=== PATIENT | female | born 1955 | race Caucasian/White ===

== ENCOUNTER 2016-11-17 13:27 | Inpatient (IN) | payer SELFPAY ==
--- NOTE | 2016-11-17 14:42 | UCPHY ---
H & P Patient Type: New Chief Complaint Nursing Narrative: states on Sat while having her hair done she became very dizzy, ate some oranges and dizzyness resolved. over weekend felt tired and like her BP was elevated- today feeling flushed and very anxious about elevated BP - does not have PCP - has been getting Rx refills of Lisinopril from walk in clinics for last 3 yrs HPI/ROS: HPI CHIEF COMPLAINT: Lightheadedness, anxiety, hypertension HISTORY OF PRESENT ILLNESS: This patient very pleasant 59-year-old female, has no primary care doctor, and has a history of hypertension for which she takes lisinopril. Patient tells me that Thursday she was getting a haircut she felt very lightheaded, since Thursday she has been very anxious she took her blood pressure noted it was high in the 160s-170s. She has no chest pain no headache no numbness or tingling no weakness. Patient tells me that she felt very anxious after taking this blood pressure. She has been very concerned she decided come here to the urgent care for evaluation of hypertension. She does not have a primary care doctor she gets her lisinopril filled at various walk- in clinics. She tells me her blood pressure usually runs 130 systolic. Here in the [facility] noted to be 160 systolic, she complains of anxiety. No chest pain no shortness of breath no headache no numbness or tingling no weakness. Past Medical History: Hypertension Past Surgical History: no significant recent surgery Social History: denies daily use of drugs alcohol tobacco products Family History: noncontributory ROS REVIEW OF SYSTEMS: A comprehensive 10 point review of systems is otherwise negative aside from elements mentioned in the history of present illness. Exam Constitutional appears anxious, triage nursing summary reviewed, vital signs reviewed, awake/alert. Eyes normal conjunctivae and sclera, EOMI, PERRLA. HENT normal inspection, atraumatic, moist mucus membranes, no epistaxis, neck supple/ no meningismus, no raccoon eyes. Respiratory clear to auscultation bilaterally, normal breath sounds, no respiratory distress, no wheezing. Cardiovascular rate normal, regular rhythm, no murmur, no edema, distal pulses normal. Gastrointestinal soft, non-tender, no rebound, no guarding, normal bowel sounds, no distension, no pulsatile mass. Genitourinary no CVA tenderness. Musculoskeletal no midline vertebral tenderness, full range of motion, no calf swelling, no tenderness of extremities, no meningismus, good pulses, neurovascularly intact. Skin pink, warm, & dry, no rash, skin atraumatic. Neurologic awake, alert and oriented x 3, AAOx3, moves all 4 extremities equally, motor intact, sensory intact, CN II-XII intact, normal cerebellar, normal vision, normal speech. Psychiatric normal mood/affect. Heme/Lymph/Immune no lymphadenopathy. Differential Diagnosis: includes but is not limited to in a particular order hypertensive urgency, hypertensive emergency, anxiety Medical Decision Making: plan for this patient have an EKG, basic blood work check her creatinine, give her dose of lisinopril 20 mg and re-evaluate her. Re-evaluation: EKG interpretation by me on record in [employer] system. Impression time of EKG 1504, this is sinus rhythm rate of 86, there is no acute ischemic changes appreciated specifically no ST elevations significant ST depression T-wave abnormalities. Prolonged intervals. 0356: Re-examination at this time patient is resting comfortably no chest pain no shortness of breath. Blood pressure improved slightly by 20 points. She has been given lisinopril 20 mg. Blood work pending. ED x-ray chest two view: negative for acute cardiopulmonary disease. Specifically no evidence cardiomegaly, or overt failure. 1901: Re-examination at this time this patient is resting comfortably no acute distress. Repeat troponin is pending. She has not any chest pain. Blood pressure has improved slightly with lisinopril 40 mg. I will give her prescription for this she understands keep a blood pressure log. Also been referred to outpatient primary care doctors [facility] and primary care on- call. Patient does understand she gets chest pain, shortness of breath, severe headache, numbness or tingling she needs return emergency room immediately. She is comfortable being discharged home. Lisinopril 40 mg keep a blood pressure log, hold medication she gets severely lightheaded her low blood pressure. She understands. Source: Patient - Personal History Current Tetanus Diphtheria and Acellular Pertussis (TDAP): Yes - Medical/Surgical History Other PMH: denies - Family History Significant Family History: No pertinent family hx - Social History Smoking Status: Never smoked Constitutional: Initial Vital Signs Heart Rate 90 11/17/16 13:45 Respiratory Rate 18 11/17/16 13:45 Blood Pressure 181/108 H 11/17/16 13:45 O2 Sat (%) 97 11/17/16 13:45 O2 Delivery Mode Room Air Allergies/Adverse Reactions: No Known Allergies Allergy (Unverified 11/17/16 13:44) Home Medications: Medication Instructions Recorded Lisinopril 11/17/16 Lisinopril [Zestril 40 mg (*)] 40 mg PO DAILY #30 tab 11/17/16 Medical Decision Making - Data Points Laboratory Results: Laboratory Results 11/17/16 15:21 11/17/16 15:21 11/17/16 11/17/16 11/17/16 17:55 16:21 15:30 WBC RBC Hgb Hct MCV MCH MCHC RDW Plt Count MPV Neut % (Auto) Lymph % (Auto) [place] % (Auto) Eos % (Auto) Baso % (Auto) Nucleat RBC Rel Count Absolute Neuts (auto) Absolute Lymphs (auto) Absolute Monos (auto) Absolute Eos (auto) Absolute Basos (auto) Absolute Nucleated RBC Immature Gran % Immature Gran # PT INR APTT Sodium Potassium Chloride Carbon Dioxide Anion Gap BUN Creatinine Estimated GFR Glucose Calcium Troponin I Pending 0.017 ng/mL ng/mL (0-0.034) NT-Pro-B Natriuret Pep Urine Color YELLOW Urine Appearance CLEAR Urine pH 7.0 (5.0-7.5) Ur Specific [place] 1.020 (1.002-1.030) Urine Protein NEGATIVE (NEGATIVE) Urine Ketones NEGATIVE (NEGATIVE) Urine Blood NEGATIVE (NEGATIVE) Urine Nitrate NEGATIVE (NEGATIVE) Urine Bilirubin NEGATIVE (NEGATIVE) Urine Urobilinogen 0.2 EU EU (0.2-1.0) Ur Leukocyte Esterase NEGATIVE (NEGATIVE) Ur Culture Indicated? NOT INDICATED (NI) Urine Glucose NEGATIVE (NEGATIVE) 11/17/16 11/17/16 11/17/16 15:21 15:21 15:21 WBC 7.20 10^3/uL 10^3/uL (3.80-9.50) RBC 5.07 10^6/uL 10^6/uL (4.18-5.33) Hgb 15.3 g/dL g/dL (12.6-16.3) Hct 44.7 % % (38.0-47.0) MCV 88.2 fL fL (81.5-99.8) MCH 30.2 pg pg (27.9-34.1) MCHC 34.2 g/dL g/dL (32.4-36.7) RDW 13.6 % % (11.5-15.2) Plt Count 240 10^3/uL 10^3/uL (150-400) MPV 12.2 fL H fL (8.7-11.7) Neut % (Auto) 60.4 % % (39.3-74.2) Lymph % (Auto) 33.5 % % (15.0-45.0) [place] % (Auto) 4.6 % % (4.5-13.0) Eos % (Auto) 0.6 % % (0.6-7.6) Baso % (Auto) 0.8 % % (0.3-1.7) Nucleat RBC Rel Count 0.0 % % (0.0-0.2) Absolute Neuts (auto) 4.35 10^3/uL 10^3/uL (1.70-6.50) Absolute Lymphs (auto) 2.41 10^3/uL 10^3/uL (1.00-3.00) Absolute Monos (auto) 0.33 10^3/uL 10^3/uL (0.30-0.80) Absolute Eos (auto) 0.04 10^3/uL 10^3/uL (0.03-0.40) Absolute Basos (auto) 0.06 10^3/uL 10^3/uL (0.02-0.10) Absolute Nucleated RBC 0.00 10^3/uL 10^3/uL (0-0.01) Immature Gran % 0.1 % % (0.0-1.1) Immature Gran # 0.01 10^3/uL 10^3/uL (0.00-0.10) PT 13.3 SEC SEC (12.0-15.0) INR 1.04 (0.83-1.16) APTT 28.6 SEC SEC (23.0-38.0) Sodium 143 mEq/L mEq/L (134-144) Potassium 3.8 mEq/L mEq/L (3.5-5.2) Chloride 108 mEq/L mEq/L (97-110) Carbon Dioxide 22 mEq/l mEq/l (22-31) Anion Gap 13 mEq/L mEq/L (8-16) BUN 12 mg/dL mg/dL (7-23) Creatinine 0.5 mg/dL L mg/dL (0.6-1.0) Estimated GFR > 60 Glucose 97 mg/dL mg/dL (70-100) Calcium 10.2 mg/dL mg/dL (8.5-10.4) Troponin I NT-Pro-B Natriuret Pep 252 pg/mL H pg/mL (0-125) Urine Color Urine Appearance Urine pH Ur Specific [place] Urine Protein Urine Ketones Urine Blood Urine Nitrate Urine Bilirubin Urine Urobilinogen Ur Leukocyte Esterase Ur Culture Indicated? Urine Glucose Medications Given: Discontinued Medications Lisinopril (Zestril) 20 mg PO EDNOW ONE Stop: 11/17/16 14:55 Last Admin: 11/17/16 15:20 Dose: 20 mg Lisinopril (Zestril) 20 mg PO EDNOW ONE Stop: 11/17/16 17:42 Last Admin: 11/17/16 17:46 Dose: 20 mg Departure - Departure Disposition: Home, Routine, Self-Care Clinical Impression: Hypertension Qualifiers: Hypertension type: other secondary hypertension Qualified Code(s): I15.8 - Other secondary hypertension Condition: Good Instructions: Hypertension (ED) Additional Instructions: 1. please take your blood pressure twice a day. Take this at the same time each day keep a log. 2. I referred due to outpatient primary care doctor, Also [facility] for uninsured healthcare. 3. I have also increased her lisinopril dose. 4. If you get lightheaded or feeling given a pass out this lisinopril and to lowering her blood pressure too much please reduce the dose or hold it. Referrals: NONE *PRIMARY CARE P,. [Primary Care Provider] - As per Instructions Mina Shirley MD [Medical Doctor] - As per Instructions [facility] [Outside] - As per Instructions Prescriptions: Lisinopril [Zestril 40 mg (*)] 40 mg PO DAILY #30 tab - PQRS PQRS Measurement: n/a
[2016-11-17] MEDS ORDERED: LISINOPRIL 20 MG TAB PO ONE ×2 (14:54→17:41)
--- NOTE | 2016-11-17 15:06 | CPEKG ---
Heart Rate: 86 RR Interval: 698 P-R Interval: 140 QRSD Interval: 96 QT Interval: 384 QTC Interval: 460 P [place]: 56 QRS [place]: 36 T Wave [place]: 56 EKG Severity - NORMAL ECG - EKG Impression: SINUS RHYTHM Electronically Signed By: Del Nicole 18-Nov-2016 15:10:37
[2016-11-17 15:38] LABS: % IMMATURE GRANULYOCYTES 0.1 % (0.0-1.1); ABSOLUTE IMMATURE GRANULOCYTES 0.01 10^3/uL (0.00-0.10); ADD DIFF? NO; ADD MORPH? NO; ADD SCAN? NO; ATYPICAL LYMPHOCYTE FLAG 0 (0-99); FRAGMENT RBC FLAG 0 (0-99); HEMATOCRIT 44.7 % (38.0-47.0); HEMOGLOBIN 15.3 g/dL (12.6-16.3); LEFT SHIFT FLG 0 (0-99); LIPEMIA HEMOLYSIS FLAG 90 (0-99); MEAN CELL HEMOGLOBIN 30.2 pg (27.9-34.1); MEAN CELL HEMOGLOBIN CONCENTR. 34.2 g/dL (32.4-36.7); MEAN CELL VOLUME 88.2 fL (81.5-99.8); MEAN PLATELET VOLUME 12.2 fL (8.7-11.7); PLATELET CLUMPS FLAG 0 (0-99); PLATELET COUNT 240 10^3/uL (150-400); RED BLOOD CELL COUNT 5.07 10^6/uL (4.18-5.33); RED CELL DISTRIBUTION WIDTH 13.6 % (11.5-15.2)
[2016-11-17 15:49] LABS: INR 1.04 (0.83-1.16); PROTIME(PATIENT) 13.3 SEC (12.0-15.0)
[2016-11-17 15:50] LABS: APTT 28.6 SEC (23.0-38.0)
[2016-11-17 15:57] LABS: ANION GAP 13 mEq/L (8-16); CALCIUM 10.2 mg/dL (8.5-10.4); CARBON DIOXIDE 22 mEq/l (22-31); CHLORIDE 108 mEq/L (97-110); CREATININE 0.5 mg/dL (0.6-1.0); GLOMERULAR FILTRATION RATE > 60; GLUCOSE 97 mg/dL (70-100); POTASSIUM 3.8 mEq/L (3.5-5.2); SODIUM 143 mEq/L (134-144)
[2016-11-17 18:30] LABS: COLOR YELLOW; LEUKOCYTE ESTERASE,URINE NEGATIVE (NEGATIVE); NITRITE,URINE NEGATIVE (NEGATIVE)
[2016-11-17 19:29] LABS: TROPONIN I 0.383 ng/mL (0-0.034)
[2016-11-17] MEDS ORDERED: ASPIRIN 81 MG CHEWABLE TAB PO ONE (19:34)
[2016-11-17] MEDS ORDERED: ENOXAPARIN 80 MG/0.8 ML SYR SC ONE (19:34)
--- NOTE | 2016-11-17 20:01 | CPEKG ---
Heart Rate: 81 RR Interval: 741 P-R Interval: 140 QRSD Interval: 100 QT Interval: 392 QTC Interval: 455 P [place]: 52 QRS [place]: 61 T Wave [place]: 55 EKG Severity - NORMAL ECG - EKG Impression: SINUS RHYTHM Electronically Signed By: Del Nicole 18-Nov-2016 15:10:37
[2016-11-18] MEDS ORDERED: LORazepam 0.5 MG TAB PO ONE (01:32)
[2016-11-18] MEDS ORDERED: ONDANSETRON DISINTEGRATING 4 MG TAB PO PRN (01:44)
[2016-11-18] MEDS ORDERED: ACETAMINOPHEN 325 MG TAB PO PRN (01:44)
[2016-11-18] MEDS ORDERED: ONDANSETRON 4 MG/2 ML VIAL IVP PRN (01:44)
[2016-11-18 01:56] LABS: CREATINE KINASE-MB FRACTION 4.76 ng/mL (0-3.19); TROPONIN I 0.757 ng/mL (0-0.034)
[2016-11-18 01:59] LABS: CK-MB INTERPRETATION POSITIVE (NEGATIVE)
--- NOTE | 2016-11-18 03:34 | PDGENHP ---
History and Physical - Chief Complaint feeling unwell - History of Present Illness Patient is a 61/F with HTN and no real medical follow-up who presented to the [facility] with complaint of feeling generally unwell and high blood pressure. Patient states since Thursday afternoon she has felt fatigued and not herself. She remained relatively inactive over the weekend because she continued to feel "bad." This morning she woke up and felt dizzy he and decided to check her blood pressure. She noted her BP to be in the 160-170 range which was unusual for her, so she decided to go to the [facility] for further evaluation. She denies any episode of chest pain, palpitations, shortness of breath or diaphoresis. She did report decreased p.o. intake over the weekend and some nausea this morning. On arrival to the [facility], patient was hypertensive, but afebrile and otherwise stable. Initial labs including CBC, BMP and troponin were unremarkable. Initial EKG also did not reveal any evidence of ischemia. She was given lisinopril 40 mg p.o. with improvement of her blood pressure. Repeat troponin was then checked and was noted to have increased to 0.3 and repeat EKG also showed evidence of ST depressions in V4 through V6. Given this change, patient was given full-dose aspirin, therapeutic dose Lovenox [facility] History Information - Allergies/Home Medication List Allergies/Adverse Reactions: No Known Allergies Allergy (Unverified 11/17/16 13:44) Home Medications: Lisinopril 11/17/16 [Last Taken Unknown] I have personally reviewed and updated: family history, medical history, social history, surgical history - Past Medical History Additional medical history: Hypertension - Surgical History Reports: no pertinent surgical hx - Family History Additional family history: F: CVA. Sister: ? cad - Social History Smoking Status: Never smoked Alcohol Use: Rarely Drug Use: None Additional social history: patient lives with her , works as an office administrative assistant. Review of Systems ROS: 10pt was reviewed & negative except for what was stated in HPI & below Physical Exam Temp Pulse Resp BP Pulse Ox 36.9 C 98 16 149/87 H 98 11/17/16 23:55 11/17/16 23:55 11/17/16 23:55 11/17/16 23:55 11/17/16 23:55 Constitutional: no apparent distress, appears nourished, not in pain, other ( Appears anxious) Eyes: PERRL, anicteric sclera, EOMI Ears, Nose, Mouth, Throat: moist mucous membranes, hearing normal, ears appear normal, no oral mucosal ulcers Cardiovascular: regular rate and rhythym, no murmur, rub, or gallop, pulses symmetric bilaterally, No JVD, No edema Peripheral Pulses: 2+: dorsalis-pedis (R), dorsalis-pedis (L) Respiratory: no respiratory distress, no rales or rhonchi, clear to auscultation Gastrointestinal: normoactive bowel sounds, soft, non-tender abdomen, no palpable masses, No guarding, No rebound, No distension Genitourinary: no bladder fullness, no bladder tenderness Skin: warm, normal color, no rashes or abrasions, no fluctuance, no induration, No mottled Musculoskeletal: full muscle strength, no muscle tenderness, normal joint ROM, no joint effusions Neurologic: AAOx3, sensation intact bilaterally, CN II-XII Intact, No weakness, No numbness, No pronator drift, No facial droop Psychiatric: not encephalopathic, thought process linear, anxious Lab Data & Imaging Review 11/17/16 15:21 11/17/16 15:21 WBC 7.20 10^3/uL (3.80-9.50) 11/17/16 15:21 RBC 5.07 10^6/uL (4.18-5.33) 11/17/16 15:21 Hgb 15.3 g/dL (12.6-16.3) 11/17/16 15:21 Hct 44.7 % (38.0-47.0) 11/17/16 15:21 MCV 88.2 fL (81.5-99.8) 11/17/16 15:21 MCH 30.2 pg (27.9-34.1) 11/17/16 15:21 MCHC 34.2 g/dL (32.4-36.7) 11/17/16 15:21 RDW 13.6 % (11.5-15.2) 11/17/16 15:21 Plt Count 240 10^3/uL (150-400) 11/17/16 15:21 MPV 12.2 fL (8.7-11.7) H 11/17/16 15:21 Neut % (Auto) 60.4 % (39.3-74.2) 11/17/16 15:21 Lymph % (Auto) 33.5 % (15.0-45.0) 11/17/16 15: [place] % (Auto) 4.6 % (4.5-13.0) 11/17/16 15: Eos % (Auto) 0.6 % (0.6-7.6) 11/17/16 15: Baso % (Auto) 0.8 % (0.3-1.7) 11/17/16 15: Nucleat RBC Rel Count 0.0 % (0.0-0.2) 11/17/16: Absolute Neuts (auto) 4.35 10^3/uL (1.70-6.50) 11/17/16 15: Absolute Lymphs (auto) 2.41 10^3/uL (1.00-3.00) 11/17/16: Absolute Monos (auto) 0.33 10^3/uL (0.30-0.80) 11/17/16 15: Absolute Eos (auto) 0.04 10^3/uL (0.03-0.40) 11/17/16: Absolute Basos (auto) 0.06 10^3/uL (0.02-0.10) 11/17/16 15: Absolute Nucleated RBC 0.00 10^3/uL (0-0.01) 11/17/16: Immature Gran % 0.1 % (0.0-1.1) 11/17/16 15: Immature Gran # 0.01 10^3/uL (0.00-0.10) 11/17/16 15: PT 13.3 SEC (12.0-15.0) 11/17/16 15: INR 1.04 (0.83-1.16) 11/17/16 15: APTT 28.6 SEC (23.0-38.0) 11/17/16 15:21 Sodium 143 mEq/L (134-144) 11/17/16 15:21 Potassium 3.8 mEq/L (3.5-5.2) 11/17/16 15:21 Chloride 108 mEq/L (97-110) 11/17/16 15:21 Carbon Dioxide 22 mEq/l (22-31) 11/17/16 15:21 Anion Gap 13 mEq/L (8-16) 11/17/16 15:21 BUN 12 mg/dL (7-23) 11/17/16 15:21 Creatinine 0.5 mg/dL (0.6-1.0) L 11/17/16 15:21 Estimated GFR > 60 11/17/16 15:21 Glucose 97 mg/dL (70-100) 11/17/16 15:21 Calcium 10.2 mg/dL (8.5-10.4) 11/17/16 15:21 Creatine Kinase 114 IU/L (0-156) 11/17/16 23:59 CK-MB (CK-2) Fraction 4.76 ng/mL (0-3.19) H 11/17/16 23:59 CK-MB (CK-2) % 4.2 % (0.0-4.0) H 11/17/16 23:59 Creatine Kinase Interp POSITIVE (NEGATIVE) H 11/17/16 23:59 Troponin I 0.757 ng/mL (0-0.034) H 11/17/16 23:59 NT-Pro-B Natriuret Pep 252 pg/mL (0-125) H 11/17/16 15:21 Urine Color YELLOW 11/17/16 17:55 Urine Appearance CLEAR 11/17/16 17:55 Urine pH 7.0 (5.0-7.5) 11/17/16 17:55 Ur Specific [place] 1.020 (1.002-1.030) 11/17/16 17:55 Urine Protein NEGATIVE (NEGATIVE) 11/17/16 17:55 Urine Ketones NEGATIVE (NEGATIVE) 11/17/16 17:55 Urine Blood NEGATIVE (NEGATIVE) 11/17/16 17:55 Urine Nitrate NEGATIVE (NEGATIVE) 11/17/16 17:55 Urine Bilirubin NEGATIVE (NEGATIVE) 11/17/16 17:55 Urine Urobilinogen 0.2 EU (0.2-1.0) 11/17/16 17:55 Ur Leukocyte Esterase NEGATIVE (NEGATIVE) 11/17/16 17:55 Ur Culture Indicated? NOT INDICATED (NI) 11/17/16 17:55 Urine Glucose NEGATIVE (NEGATIVE) 11/17/16 17:55 Visualized and Interpreted Chest x-ray results: Yes Chest X-Ray results: no infiltrate, normal Visualized and Interpreted EKG results: Yes EKG Interpretation: Positive for: normal sinsus rhythm (ST depressions in V4-V6) Assessment & Plan Assessment: patient is a 61-year-old female with history of hypertension, who presents to the [facility] with a complaint of generalized fatigue and dizziness. Seems evaluation revealed elevated troponin, ischemic changes on EKG concerning for ACS. Plan: # elevated troponin Patient denies any acute cardiac symptoms, reports only a vague sensation of being unwell. Initial EKG and troponin were negative, however repeat in the [facility] revealed ST-T segment changes and a bump in her troponin 0.3. Troponin has since increased, appears consistent with an acute NSTEMI. Patient was given aspirin and full-dose Lovenox at 8p.m. in the [facility], cardiology has been contacted. Will obtain TTE, continue to trend troponins and monitor EKGs. Will also check lipid panel, TSH and HbA1c to asses for risk factors. # hypertension Patient with chronic hypertension that had acutely increased today. She was hypertensive on presentation to the [facility], which has responded to her home lisinopril dose. Will cont to monitor BP, if needed will add b-lakisha. # dispo: admit under observation status # gen: NPO Full code
[2016-11-18 06:02] LABS: % IMMATURE GRANULYOCYTES 0.2 % (0.0-1.1); ABSOLUTE IMMATURE GRANULOCYTES 0.02 10^3/uL (0.00-0.10); ADD DIFF? NO; ADD MORPH? NO; ADD SCAN? NO; ATYPICAL LYMPHOCYTE FLAG 0 (0-99); FRAGMENT RBC FLAG 0 (0-99); HEMOGLOBIN 13.4 g/dL (12.6-16.3); LEFT SHIFT FLG 0 (0-99); LIPEMIA HEMOLYSIS FLAG 90 (0-99); MEAN CELL HEMOGLOBIN 30.3 pg (27.9-34.1); MEAN CELL HEMOGLOBIN CONCENTR. 34.4 g/dL (32.4-36.7); MEAN CELL VOLUME 88.2 fL (81.5-99.8); MEAN PLATELET VOLUME 12.2 fL (8.7-11.7); PLATELET CLUMPS FLAG 0 (0-99); PLATELET COUNT 222 10^3/uL (150-400); RED BLOOD CELL COUNT 4.42 10^6/uL (4.18-5.33); RED CELL DISTRIBUTION WIDTH 13.5 % (11.5-15.2)
[2016-11-18 06:18] LABS: ANION GAP 9 mEq/L (8-16); CALCIUM 9.8 mg/dL (8.5-10.4); CARBON DIOXIDE 23 mEq/l (22-31); CHLORIDE 106 mEq/L (97-110); CHOLESTEROL 156 mg/dL (140-220); CHOLESTEROL/HDL RATIO 2.64 RATIO (1.00-4.44); CREATININE 0.5 mg/dL (0.6-1.0); GLOMERULAR FILTRATION RATE > 60; GLUCOSE 100 mg/dL (70-100); HIGH DENSITY LIPOPROTEIN 59 mg/dL (40-85); LDL/HDL RATIO 1.34 RATIO (1.00-3.22); LOW DENSITY LIPOPROTEIN 79 mg/dL (80-100); MAGNESIUM 1.9 mg/dL (1.6-2.3); NON-HIGH DENSITY LIPOPROTEIN 97 mg/dL (90-129); POTASSIUM 3.7 mEq/L (3.5-5.2); SODIUM 138 mEq/L (134-144); TRIGLYCERIDE 92 mg/dL (35-135); VERY LOW DENSITY LIPOPROTEINS 18 mg/dL (8-25)
[2016-11-18 06:19] LABS: INR 1.11 (0.83-1.16); PROTIME(PATIENT) 14.2 SEC (12.0-15.0)
[2016-11-18 06:29] LABS: TROPONIN I 0.679 ng/mL (0-0.034)
[2016-11-18 06:30] LABS: CREATINE KINASE-MB FRACTION 4.36 ng/mL (0-3.19)
[2016-11-18 06:37] LABS: CK-MB INTERPRETATION POSITIVE (NEGATIVE)
[2016-11-18 10:24] LABS: HEMOGLOBIN A1C 5.5 % (4.0-6.0)
--- NOTE | 2016-11-18 11:23 | ECHO ---
[id number] + + [address] : : [place] [address] : : [phone] + Adult Echocardiographic Report + --------+ :Name: ERIK EVANS Date: 11/18/2016 08:04 AM BP: 134/75 mm Hg : : Hospital Admission Number: [id number] Locat ion: 255: :: 1955 Gender: Female Height: 69 in : :Age: 61 yrs Race: WH Weight: 155 l b : :Reason For Study: Eval LV Fx : : BSA: 1.9 mete rs2 : :History: elevated troponin; htn : + --------+ MMode/2D Measurements \T\ Calculations IVSd: 0.75 cm RVDd: 3.2 cm FS: 46.7 % MV Diam: 3.4 cm LVPWd: 0.79 cm LVIDd: 5.4 cm EDV(Teich): 139.0 ml LVIDs: 2.9 cm ESV(Teich): 31.1 ml EF(Teich): 77.6 % Ao root diam: LVOT diam: 2.0 cmLVLd ap4: 8.0 cm SV(MOD-sp4): 3.4 cm LVOT area: EDV(MOD-sp4): 69.0 ml 3.2 cm2 107.0 ml LVLs ap4: 6.8 cm ESV(MOD-sp4): 38.0 ml EF(MOD-sp4): 64.5 % Normal Measurement Values: + + :LVIDd (3.5-5.7cm) IVSd (0.6-1.1cm) LVPWd (0.6-1.1cm) Aortic Root (2.0-3.7cm)Left Atrium (1.5-4.0cm): :LV Vol(d) (76-115ml) LV Vol(s) (29-48ml) Ejec Fraction (50-65%)PV Neno (0.6- 1.2m/s) TV Neno (0.4-1.0m/s) : :MV E Neno (0.8-1.0m/s)MV A Neno (0.3-1.0m/s)LVOT Neno (0.7-1.2m/s) Asc Ao Neno ( 0.9-1.8m/s) : + + Doppler Measurements \T\ Calculations MV E max neno: MV V2 max: Ao V2 max: LV V1 mean P.6 cm/sec 70.1 cm/sec 124.3 cm/sec 2.3 mmHg MV A max neno: MV max P.0 mmHg Ao max P.2 mmHgLV V1 mean: 66.6 cm/sec MV V2 mean: 72.0 cm/sec MV E/A: 1.0 35.5 cm/sec LV V1 VTI: MV dec time: MV mean P.3 cm 0.35 sec 0.59 mmHg MV V2 VTI: 14.9 cm MV area (1 diam): 8.8 cm2 MVA(VTI): 4.6 cm2 MV Flow area(1diam): 8.8 cm2 MR max neno: MR(RF 1 diam): SV(MV 1 diam): PA V2 max: 573.4 cm/sec 20.0 % 131.3 ml 114.0 cm/sec MR max PG: SI(MV 1 diam): PA max P.5 mmHg 70.8 ml/m2 5.2 mmHg SV(LVOT): 68.6 ml RF(MV,LVOT)(1diam): 0.48 Left Ventricle The left ventricle is normal in size and function. There is normal left ventricular wall thickness. Ejection Fraction = 60-65%. No regional wall motion abnormalities noted. Right Ventricle The right ventricle is normal in size and function. Atria The left atrial size is normal. Right atrial size is normal. Mitral Valve Prolapse of the posterior mitral leaflet(s). There is no mitral valve stenosis. The mitral regurgitant jet is anteriorly directed, which is consistent with posterior leaflet pathology. There is moderate mitral regurgitation. Tricuspid Valve The tricuspid valve is normal in structure and function. There is no tricuspid stenosis. There is trace tricuspid regurgitation. Aortic Valve The aortic valve is trileaflet. There is no aortic stenosis. There is no aortic insufficiency. Pulmonic Valve The pulmonic valve is not well visualized. Great Vessels The aortic root is normal size. Pericardium/Pleural There is no pericardial effusion. Conclusion The left ventricle is normal in size and function. Ejection Fraction = 60-65%. Prolapse of the posterior mitral leaflet(s). There is moderate mitral regurgitation. The mitral regurgitant jet is anteriorly directed, which is consistent with posterior leaflet pathology. There is trace tricuspid regurgitation. MR should be followed longitudinally with a repeat echo in 2 years. Final Reading Physician: Kennedy Robles signed on 11/18/2016 11:22 AM Ordering Physician: Lashanda Mendez Performed By: Cleo Sanchez
--- NOTE | 2016-11-18 16:19 | HOSPPROG ---
Hospitalist Progress Note Assessment/Plan: 61 yo F with PMH of HTN presenting with BP elevation and generalized malaise found to have increased trop # elevated trop: initially normal but then increasing to peak at 0.7. ECG personally reviewed showing minimal st depressions in v4-v6 as well as I, II. Given asa/lovenox and cardiology consulted with nuc stress planned in the am. Patient not having any chest pain but does continue to have slight dizzyness and malaise which may be her anginal equivalent. # uncontrolled htn: on lisinopril at home and bp elevated on arrival to 180/100 , has trended back down to within or near goal range on home dose of lisinopril. In setting of above. Continue to monitor # moderate MR: noted on echo, will need ongoing routine f/u, cardiology consulted as above # dispo: IP status, given elevated troponin and concerns for ACS will need further evaluation with stress test and formal cardiology consultation patient new to my care. Old records reviewed and summarized as above. Care plan reviewed with cardiology. Subjective: no significant overnight events, patient very hungry and wants to know when she can eat Objective: Vital Signs Temp Pulse Resp BP Pulse Ox 36.4 C 98 20 145/74 H 97 11/18/16 15:30 11/18/16 15:30 11/18/16 15:30 11/18/16 15:30 11/18/16 15:30 Laboratory Results 11/18/16 05:45 11/18/16 05:45 PT 14.2 SEC (12.0-15.0) 11/18/16 05:45 INR 1.11 (0.83-1.16) 11/18/16 05:45 awake alert nad anicteric op clear rrr no mrg cta b soft nt nd no cce warm dry well perfused oriented appropriate ICD10 Worksheet Patient Problems: Problems Problem Status Onset Hypertension Acute
--- NOTE | 2016-11-18 19:09 | GCON ---
[f rep st] CONSULTATION CARDIOLOGY CONSULTATION DATE OF CONSULTATION: 11/18/2016 REFERRING PHYSICIAN: Kami Collier MD REASON FOR CONSULTATION: Hypertension and elevated troponin. HISTORY: The patient is a 61-year-old woman whose only cardiovascular issue is a history of hyperte nsion. On Thursday, she had an appointment at a hair salon. During her hairstyling, she felt very li ghtheaded. She got home and checked her blood pressure, and it was significantly elevated at 170 mm Hg systolic. Typically, her blood pressure is well controlled and almost never exceeds 140 mmHg sys tolic. Over the weekend, she says she just did not feel right. She may have had some sensation in her arms, but did not have any chest discomfort. She was not particularly short of breath. She did not experience rapid palpitations. Her blood pressure continued to be moderately elevated througho ut the weekend. Therefore, she presented to [facility]. Her blood pressure was 181/1 08. She did not have any neurologic symptoms. Her blood pressure did not improve after receiving a dditional lisinopril. She did not have any EKG changes. Her initial troponin was normal. Because of her history, she was sent to the [facility] for observation. Overnight, her troponin incre ased to a peak of 0.757 and is now trending down. As mentioned previously, she has no prior cardiac history. She does not have hyperlipidemia or diabetes. There is a family history of stroke, but n o family history of early CAD. PAST MEDICAL HISTORY: Apart from her hypertension, her past medical history is essentially unremark able. SOCIAL HISTORY: She is . She has never been a smoker. Alcohol consumption is not excessive . She says that her day-to-day work activities at home have her up and around the house, and up and down stairs several times per day. She does not follow a specific exercise program. REVIEW OF SYSTEMS: Apart from the general vague sensation of unwellness, a 10-point review was nega tive. PHYSICAL EXAMINATION: VITAL SIGNS: Heart rate in the 80s with sinus rhythm on the monitor, blood p ressure 145/74. GENERAL: Well developed, well nourished woman, in no acute distress. She is alert and oriented x3. HEAD AND NECK: No scleral icterus. Mucous membranes moist. Carotid pulses 2+ w ithout bruits. There is no JVD. CHEST: Lung garcia are clear to auscultation. CARDIAC: Regular rate and rhythm with a normal S1 and S2. There is no murmur or gallop. ABDOMEN: Soft, nontender, nondistended with normal bowel sounds. EXTREMITIES: 2+ pulses and no peripheral edema. LABORATORY STUDIES: As mentioned previously, her initial troponin was normal, but increased to 0.56 7 on the third draw and is now trending down to 0.679. Her sodium, potassium, and renal function ar e normal. Total cholesterol 156 with HDL 59, LDL 79, and triglycerides 92. IMAGING: ECG: Her ECG demonstrates normal sinus rhythm. There are no Q-waves or conduction system disturbances. She has subtle, nonspecific inferolateral ST-segment abnormalities. Echocardiogram: An echocardiogram performed earlier today demonstrates normal left ventricular syst olic function with an ejection fraction of 60% to 65%. She has mild mitral valve prolapse with mode rate mitral regurgitation. She has no other significant valve issues. IMPRESSION: This is a 61-year-old female, who presents with elevated blood pressure, a general sens e of feeling unwell, and mildly increased troponin. She has not had any arrhythmias. There is no e vidence for CHF. She has not had anginal quality chest discomfort. Apart from her hypertension, micheal wren has a low risk profile for CAD. RECOMMENDATIONS: I had a discussion with the patient about options for beginning her evaluation wit h noninvasive testing, such as a nuclear stress test versus proceeding directly to cardiac catheteri zation. She would prefer to start noninvasively. An exercise stress test with nuclear imaging has been requested. /[id number]/MODL
[2016-11-18] MEDS: LORazepam 0.5 MG TAB PO PRN (22:35)
[2016-11-19 07:23] VITALS: RESP 16
[2016-11-19] MEDS ORDERED: ASPIRIN 81 MG CHEWABLE TAB PO SCH (09:00)
[2016-11-19] MEDS ORDERED: REGADENOSON 0.4 MG/5 ML SYR IVP ONE (09:30)
[2016-11-19] MEDS: LORazepam 0.5 MG TAB PO PRN (11:01)
[2016-11-19 11:33] VITALS: TEMP 98.5; O2SAT 95
[2016-11-19] MEDS ORDERED: DIAZEPAM 5 MG TAB PO ONE (13:19)
[2016-11-19] MEDS ORDERED: NITROGLYCERIN 0.4 MG BTL SL PRN (13:19)
[2016-11-19] MEDS ORDERED: diphenhydrAMINE 25 MG CAP PO ONE (13:19)
[2016-11-19] MEDS ORDERED: HEPARIN 10,000 UNIT/10 ML MDV ONE (13:54)
[2016-11-19] MEDS ORDERED: LIDOCAINE 1% 30 ML SDV ONE (13:54)
[2016-11-19] MEDS ORDERED: MIDAZOLAM 2 MG/2 ML VIAL ONE (13:54)
[2016-11-19] MEDS ORDERED: fentaNYL 100 MCG/2 ML INJ ONE (13:54)
[2016-11-19] MEDS ORDERED: VERAPAMIL 5 MG/2 ML VIAL ONE (13:55)
[2016-11-19] MEDS ORDERED: IOPAMIDOL (ISOVUE 370) 100 ML BTL IV ONE (13:55)
--- NOTE | 2016-11-19 14:52 | PDDXCAT ---
Diagnostic Cath Note - . Date: 11/19/16 Advanced Practice Nurse: Vikash Indication: other (Abnormal ECG; Elevated Troponin; Abnormal Nuclear Stress Carolyn) - Procedure Access: right groin (Initially attempted from right radial but could not gain access.) Procedure: left heart catheterization, coronary angiography, left ventriculogram - Materials Left Heart Cath size: 6F Left Heart Cath materials: standard multipack (JL4, JR4, pigtail) - Findings-Left Heart Catheterization LM: Angiographically normal. LAD: Angiographically normal. LCX: Angiographically normal; small system. RCA: Angiographically normal; large, hyper-dominant vessel. EDP: 6 mmHg LVEF: 60% Wall motion: Normal Complications: None Estimated blood loss: <50ml Closure method: Angioseal Assessment: 1) Nomal LV systolic function. 2) Angiographically normal coronary arteries. Patient Problems: Problems Problem Status Onset Hypertension Acute
--- NOTE | 2016-11-19 15:00 | PDCARPN ---
Cardiology Progress Note Assessment/Plan: 11/19/16 14:58 Subjective: No CV compalints. Objective: Vital Signs (8 Hrs) Temp Pulse Resp BP Pulse Ox 11/19/16 11:31 36.9 C 141 H 16 160/70 H 95 11/19/16 07:22 36.9 C 86 16 109/68 92 Intake/Output (24 Hrs) 11/18/16 11/19/16 11/20/16 05:59 05:59 05:59 Intake Total 450 Balance 450 Intake: Oral (ml) 450 Other: Weight 70.6 kg Intake Quantity Yes Sufficient Number of Voids Toilet 3 3 Result Diagrams: 11/18/16 05:45 11/18/16 05:45 Cardiac Labs: Cardiac Lab Results (72 Hrs) 11/18/16 11/17/16 05:45 23:59 CK-MB (CK-2) Fraction 4.36 H 4.76 H Troponin I 0.679 H 0.757 H ICD10 Worksheet Patient Problems: Problems Problem Status Onset Hypertension Acute
--- NOTE | 2016-11-19 15:17 | PDCARPN ---
Cardiology Progress Note Assessment/Plan: 61-year-old female admitted after approximately 48 hours of "not feeling well" and experiencing elevated blood pressure at home with systolic pressures in the range of 160-170 mmHg. Initial troponin negative. ECG with subtle, nonspecific ST abnormalities. Troponin increased to a peak of 0.757. Echocardiogram demonstrated normal LV systolic function and mild mitral valve prolapse with moderate mitral regurgitation. Nuclear stress test earlier today suggested a fixed inferior defect. Cardiac catheterization just completed and demonstrates normal LV systolic function and angiographically normal coronary arteries. Elevated Troponin: Possible myocardial oxygen supply/demand mismatch in the setting of elevated blood pressure, albeit BP was not exceedingly high. Patient was extremely anxious over the weekend and her ECG and troponin findings could have suggested possible Takotsubo syndrome. However, left ventricular systolic function is normal. She has normal coronary arteries with no evidence of atherosclerosis whatsoever. Hypertension: She reports that it is usually well controlled at home with her systolic pressure rarely exceeding 140 mmHg. She has had intermittently, moderately elevated blood pressure here in the hospital. - Continue prior dose of lisinopril. - Add amlodipine 5 mg daily. - Record blood pressure twice daily. I have provided her with blood pressure diary pages for her to bring to her office followup appointment. Mitral Regurgitation: Moderate on echocardiography. - This will need to be followed longitudinally. _ Recommend repeat the echocardiography in 2 years. Disposition: Okay for discharge to home later today. - My office will contact her to range for a followup appointment in the near future. 11/19/16 15:10 Subjective: No CV complaints Objective: Vital Signs (8 Hrs) Temp Pulse Resp BP Pulse Ox 11/19/16 11:31 36.9 C 141 H 16 160/70 H 95 11/19/16 07:22 36.9 C 86 16 109/68 92 Intake/Output (24 Hrs) 11/18/16 11/19/16 11/20/16 05:59 05:59 05:59 Intake Total 450 Balance 450 Intake: Oral (ml) 450 Other: Weight 70.6 kg Intake Quantity Yes Sufficient Number of Voids Toilet 3 3 Result Diagrams: 11/18/16 05:45 11/18/16 05:45 Cardiac Labs: Cardiac Lab Results (72 Hrs) 11/18/16 11/17/16 05:45 23:59 CK-MB (CK-2) Fraction 4.36 H 4.76 H Troponin I 0.679 H 0.757 H - Physical Exam Constitutional: WDWN, no apparent distress Eyes: anicteric sclera Ears, Nose, Mouth, Throat: moist mucous membranes Cardiovascular: regular rate and rhythm, no murmurs Respiratory: clear to auscultate bilat Gastrointestinal: normoactive bowel sounds, no tenderness, no masses Skin: no rashes, no edema Neurologic: AAOx3 Psychiatric: flat affect ICD10 Worksheet Patient Problems: Problems Problem Status Onset Hypertension Acute
[2016-11-19] MEDS ORDERED: HYDROCODONE/APAP 5/325 TAB PO PRN (15:37)
--- NOTE | 2016-11-19 16:32 | CPR ---
[f rep st] NONINVASIVE CARDIAC PROCEDURE REPORT DATE OF PROCEDURE: 11/19/2016 PROCEDURE: Exercise nuclear stress test. INDICATION: The patient is a 61-year-old female, who developed chest pressure with associated bilateral arm discomfort and head pressure, which was intermittent prior to admission. It persisted for a few days and did improve with 4 baby aspirin given at urgent care. Her troponin was mildly elevated and her risk factors for coronary disease include hypertension. Her blood pressure was elevated on admission. DESCRIPTION OF PROCEDURE: Consent was obtained, and the patient was placed on continuous telemetry. She walked for 6 and a half minutes without any associated symptoms. Her heart rate increased quickly and reached 100% of her age predicted maximum heart rate within a few minutes. She developed nonspecific ST-T wave changes with exertion which become more prominant in late recovery. She had 1mm flat ST depression in the lateral leads. Plan: Positive ETT for ischemia. Await nuclear images. Autumn Goncalves PA-C /[id number]/MODL MTDD
--- NOTE | 2016-11-19 17:18 | PDDCSUM ---
Discharge Summary Discharge Summary: Dates of service 11/18-11/19/16 Discharge dx: # elevated trop # hypertension # moderate MR Consutlation: cardiology Procedures performed: echo, nuc stress test, cardiac catheterization Hospital course by problem: # elevated trop: unclear etiology--cath w/o significant CAD, no e/o LVH dysfunction to suggest Takotsubo, has had HTN but not significantly so. Essentialy trop elevation unclear but likely supply/demand mismatch related to htn given clean cath. Will f/u with cardiology # htn: amlodipine and lisinopril at dc, f/u wtith cardiology # VHD: moderate MR, will need routine f/u echo Dc home f/u with pcp/cardiology Meds: see EHR > 35 min spent in dc more than half in coordination of care
[2016-11-19 17:31] VITALS: BP 122/73; PULSE 65
[2016-11-20] MEDS ORDERED: amLODIPine BESYLATE 5 MG TAB PO SCH (09:00)
== END 2016-11-19 19:50 | disposition home or self-care (01) | DRG 287 ==
LOC: CED 13:27 → CEDHOLD 19:44 → F2N 23:03 → F2W 11-18 15:30
PROVIDERS: ADMIT Internal Medicine; ATTEND Internal Medicine
PROC: B2111ZZ Fluoroscopy of Multiple Coronary Arteries using Low Osmolar Contrast (ICD-10-PCS; principal; 2016-11-19)
PROC: 4A023N7 Measurement of Cardiac Sampling and Pressure, Left Heart, Percutaneous Approach (ICD-10-PCS; principal; 2016-11-19)
PROC: B2151ZZ Fluoroscopy of Left Heart using Low Osmolar Contrast (ICD-10-PCS; principal; 2016-11-19)
DX: I10 Essential (primary) hypertension (principal); R68.89 Other general symptoms and signs; I34.0 Nonrheumatic mitral (valve) insufficiency
CPT/HCPCS: 71020-PO; 80048-PO; 81003-PO; 83880-PO; 84484-PO; 85025-PO; 85610-PO; 85730-PO; 93010-PO; 96360-PO; 96372-PO; 99205-PO; A9500; C1760; C1769; G0463-PO; J1644; J1650; J2250; J2785; J3010; Q9967